=== PATIENT | male | born 1990 | race African-American/Black ===

== ENCOUNTER 2020-06-19 04:12 | Emergency (ER) | payer OTHER ==
[~2020-06-19] VITALS: Ht 167.6 cm; Wt 70.0 kg
[2020-06-19 04:33] VITALS: BP 125/78
== END 2020-06-19 05:28 | disposition left against medical advice (07) ==
LOC: ER 04:27
DX: Z53.21 Procedure and treatment not carried out due to patient leaving prior to being seen by health care provider (principal)

== ENCOUNTER 2020-07-12 10:00 | Emergency (ER) | payer MEDICAID, OTHER ==
[~2020-07-12] VITALS: Ht 162.6 cm; Wt 80.0 kg
[2020-07-12] MEDS ORDERED: KETOROLAC 30MG/ML VIAL IM ONE (10:15)
[2020-07-12 10:25] VITALS: BP 106/70
== END 2020-07-12 10:38 | disposition home or self-care (01) ==
LOC: ER 10:00
DX: S39.012A Strain of muscle, fascia and tendon of lower back, initial encounter (principal); Y04.0XXA Assault by unarmed brawl or fight, initial encounter; Y93.89 Activity, other specified; Y92.59 Other trade areas as the place of occurrence of the external cause
CPT/HCPCS: 96372; 99283; J1885

== ENCOUNTER 2020-07-23 11:59 | Emergency (ER) | payer MEDICAID, OTHER ==
[~2020-07-23] VITALS: Ht 172.7 cm; Wt 71.0 kg
[2020-07-23 12:09] VITALS: BP 107/66
[2020-07-23] MEDS ORDERED: IBUPROFEN 600MG TABLET PO ONE (12:45)
[2020-07-23] MEDS ORDERED: CEFTRIAXONE SODIUM 250 MG/VIAL IM ONE (13:00)
[2020-07-23] MEDS ORDERED: AZITHROMYCIN 500 MG TABLET PO ONE (13:00)
== END 2020-07-23 13:49 | disposition home or self-care (01) ==
LOC: ER 11:59
DX: N34.2 Other urethritis (principal)
CPT/HCPCS: 96372; 99283; J0696